=== PATIENT | female | born 1960 | race Caucasian/White ===

== ENCOUNTER 2017-07-05 08:34 | Emergency (ER) | payer OTHER ==
[~2017-07-05] VITALS: Ht 170.2 cm; Wt 86.4 kg
[~2017-07-05 08:34] MED LIST: CLON0.5T PO; ONDA4TAB7 OR; PROM25SU8 PO
[2017-07-05 08:38] VITALS: BP 146/79; PULSE 80; RESP 16; TEMP 97.4; O2SAT 99
[2017-07-05] MEDS ORDERED: ZOFR4TAB PO (08:45)
[2017-07-05] MEDS ORDERED: CLON1 PO (08:45)
[2017-07-05] MEDS ORDERED: DICY10 PO (08:45)
[2017-07-05] MEDS ORDERED: HUMI40KI SQ (08:45)
[2017-07-05] MEDS ORDERED: ESTR1.25 PO (08:45)
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
[2017-07-05 10:23] VITALS: BP 123/73
== END 2017-07-05 10:29 | disposition home or self-care (01) ==
LOC: PHED 08:34
DX: S40.012A Contusion of left shoulder, initial encounter (principal); S16.1XXA Strain of muscle, fascia and tendon at neck level, initial encounter; V89.2XXA Person injured in unspecified motor-vehicle accident, traffic, initial encounter
CPT/HCPCS: 71046; 72040; 73030; 99284

== ENCOUNTER 2017-07-08 07:08 | Emergency (ER) | payer OTHER, MEDICARE ==
[~2017-07-08] VITALS: Ht 170.2 cm; Wt 86.0 kg
[~2017-07-08 07:08] MED LIST changes: -CLON0.5T PO; +CLON1 PO; +DICY10 PO; +ESTR1.25 PO; +HUMI40KI SQ; -ONDA4TAB7 OR; -PROM25SU8 PO; +ZOFR4TAB PO
[2017-07-08 07:13] VITALS: BP 128/60; PULSE 73; RESP 16; TEMP 97.7; O2SAT 98
[2017-07-08] MEDS ORDERED: TRAM50 PO (07:40)
[2017-07-08] MEDS ORDERED: CYCL10TA PO (07:40)
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
== END 2017-07-08 08:34 | disposition home or self-care (01) ==
LOC: PHED 07:08
DX: S76.011A Strain of muscle, fascia and tendon of right hip, initial encounter (principal); K50.90 Crohn's disease, unspecified, without complications; M19.90 Unspecified osteoarthritis, unspecified site; V49.9XXA Car occupant (driver) (passenger) injured in unspecified traffic accident, initial encounter; Z88.5 Allergy status to narcotic agent
CPT/HCPCS: 99284

== ENCOUNTER 2017-11-07 11:30 | Emergency (ER) | payer OTHER ==
[~2017-11-07] VITALS: Ht 170.2 cm; Wt 87.0 kg
[~2017-11-07 11:30] MED LIST changes: +CYCL10TA PO; +TRAM50 PO
[2017-11-07 11:38] VITALS: BP 149/79; PULSE 97; RESP 16; TEMP 98.5; O2SAT 97
[2017-11-07] MEDS ORDERED: SODIUM CHLOR 0.9% 1000 ML INJ 1,000 ML IV SCH (12:12)
[2017-11-07] MEDS ORDERED: MORPHINE SULFATE 4 MG/ML INJ IV PUSH ONE (12:15)
[2017-11-07] MEDS ORDERED: SODIUM CHLORIDE 0.9% FLUSH 10 ML FLUSH IV FLUSH PRN (12:15)
--- NOTE | 2017-11-07 12:18 | PD ---
HPI Chief Complaint: Abdominal Pain Time Seen by Provider: 11:59 Travel History International Travel<30 days: No Contact w/Intl Traveler<30days: No Traveled to known affect area: No History of Present Illness HPI Patient is a 57-year-old female with history of Crohn's disease, who follows with Dr. Marcano in the office, presents the emergency room for evaluation of abdominal pain. Patient reports that she has been taking Humira for her Crohn' s disease, patient does not believe that this is helping her with her symptoms. Patient reports that she has been having lower abdominal pain for the past few days, reports that pain is worse today. Patient reports that pain is associated nausea with no episodes of emesis, reports that she has had multiple episodes of diarrhea. She did try calling her leaf blender for an appointment, reports that the earliest that she could be seen was on November 29, 2017. Patient denies any fevers or chills, reports that pain is similar to her past Crohn's flareup. Patient does endorse that she has never had any abdominal surgeries in the past, she does have history of small bowel obstruction which resolved after medical treatment, no surgery was needed. PFSH Past Medical History Arthritis: Yes Anxiety: Yes Depression: Yes Heart Rhythm Problems: No Cancer: No Cardiac Catheterization: No Cardiovascular Problems: Yes (hx of htn not at this present time) High Cholesterol: No Chest Pain: Yes Congestive Heart Failure: No Cerebrovascular Accident: No Diabetes: No Diminished Hearing: No Gastrointestinal Disorders: Yes (IRRITABLE BOWEL SYNDROME,CROHNS) GERD: Yes Genitourinary: No Headaches: No Hepatitis: No Hiatal Hernia: No Heparin Induced Thrombocytopen: No Hypertension: Yes Medical other: Yes (GERD, ARTHRITIS) Neurologic: No Reproductive: Yes (OVARIAN CYSTS) Respiratory: No Immunizations Current: No Migraines: No Renal Failure: No Seizures: No Thyroid Disease: No PNEUMOCCOCAL Vaccine (Year): 2008 Menopausal: Yes : 2 Para: 2 Tubal Ligation: Yes Past Surgical History Abdominal Surgery: Yes Section: Yes (X2) Cholecystectomy: Yes Coronary Artery Bypass Graft: No Gynecologic Surgery: Yes (C SECTION X2, LASH) Hysterectomy: Yes Joint Replacement: Yes (TOTAL LEFT HIP 1989, REVISION 2011) Pacemaker: No Other Surgery: Yes Social History Alcohol Use: Yes (OCC) Tobacco Use: No (NEVER) Substance Use: No Allergies-Medications (Allergen,Severity, Reaction): Coded Allergies: hydromorphone (Verified Adverse Reaction, Intermediate, N/V, SWEATING, ) codeine (Unverified Adverse Reaction, Mild, Nausea/Vomiting, 11/07/17) metoclopramide (Unverified Adverse Reaction, Mild, Irritability/Anxiety, ) morphine (Unverified Adverse Reaction, Mild, PT DENIES, 11/07/17) Reported Meds & Prescriptions Reported Meds & Active Scripts Active Macrobid (Nitrofurantoin Monohydrate Macrocrystals) 100 Mg Capsule 100 Mg PO BID 10 Days Reported Humira 2-Pack Inj (Adalimumab 2-Pack Inj) 40 Mg/0.8 Ml Syr 40 Mg SQ Q14D Zofran (Ondansetron HCl) 4 Mg Tab 4 Mg PO Q8HR PRN Premarin (Estrogens Conjugated) 1.25 Mg Tab 1.25 Mg PO DAILY Klonopin (Clonazepam) 1 Mg Tab 1 Mg PO HS Review of Systems General / Constitutional: No: Fever, Chills Eyes: No: Visual changes HENT: No: Headaches Cardiovascular: No: Chest Pain or Discomfort Respiratory: No: Shortness of Breath Gastrointestinal: Positive: Nausea, Diarrhea, Abdominal Pain Genitourinary: No: Dysuria Musculoskeletal: No: Pain Skin: No Rash Neurologic: No: Weakness Psychiatric: No: Depression Endocrine: No: Polydipsia Hematologic/Lymphatic: No: Easy Bruising Physical Exam Narrative GENERAL: mild distress SKIN: Focused skin assessment warm/dry. HEAD: Atraumatic. Normocephalic. EYES: Pupils equal and round. No scleral icterus. No injection or drainage. ENT: No nasal bleeding or discharge. Mucous membranes pink and moist. NECK: Trachea midline. No JVD. CARDIOVASCULAR: Regular rate and rhythm. No murmur appreciated. RESPIRATORY: No accessory muscle use. Clear to auscultation. Breath sounds equal bilaterally. GASTROINTESTINAL: Abdomen soft, moderate tenderness to lower abdomen with guarding on exam, nondistended. Hepatic and splenic margins not palpable. + BS MUSCULOSKELETAL: No obvious deformities. No clubbing. No cyanosis. No edema. NEUROLOGICAL: Awake and alert. No obvious cranial nerve deficits. Motor grossly within normal limits. Normal speech. PSYCHIATRIC: Appropriate mood and affect; insight and judgment normal. Data Data Last Documented VS Vital Signs Date Time Temp Pulse Resp B/P (MAP) Pulse Ox O2 Delivery O2 Flow Rate FiO2 11/07/17 12:30 87 20 139/84 (102) 98 11/07/17 11:38 98.5 Orders Orders Complete Blood Count With Diff (11/07/17 12:12) Comprehensive Metabolic Panel (11/07/17 12:12) Lipase (11/07/17 12:12) Prothrombin Time / Inr (Pt) (11/07/17 12:12) Act Partial Throm Time (Ptt) (11/07/17 12:12) Urinalysis - C+S If Indicated (11/07/17 12:12) Ct Abd/Pel W Iv Contrast(Rout) (11/07/17 12:12) Iv Access Insert/Monitor (11/07/17 12:12) Ecg Monitoring (11/07/17 12:12) Oximetry (11/07/17 12:12) Morphine Inj (Morphine Inj) (11/07/17 12:15) Sodium Chlor 0.9% 1000 Ml Inj (Ns 1000 M (11/07/17 12:12) Sodium Chloride 0.9% Flush (Ns Flush) (11/07/17 12:15) Ondansetron Odt (Zofran Odt) (11/07/17 13:15) Iohexol 350 Inj (Omnipaque 350 Inj) (11/07/17 13:39) Urine Culture (11/07/17 14:35) Labs Laboratory Tests Test 11/07/17 12:10 11/07/17 14:35 White Blood Count 9.2 TH/MM3 Red Blood Count 4.62 MIL/MM3 Hemoglobin 14.0 GM/DL Hematocrit 41.3 % Mean Corpuscular Volume 89.6 FL Mean Corpuscular Hemoglobin 30.4 PG Mean Corpuscular Hemoglobin Concent 34.0 % Red Cell Distribution Width 11.9 % Platelet Count 276 TH/MM3 Mean Platelet Volume 8.1 FL Neutrophils (%) (Auto) 73.6 % Lymphocytes (%) (Auto) 15.6 % Monocytes (%) (Auto) 7.5 % Eosinophils (%) (Auto) 1.5 % Basophils (%) (Auto) 1.8 % Neutrophils # (Auto) 6.8 TH/MM3 Lymphocytes # (Auto) 1.4 TH/MM3 Monocytes # (Auto) 0.7 TH/MM3 Eosinophils # (Auto) 0.1 TH/MM3 Basophils # (Auto) 0.2 TH/MM3 CBC Comment DIFF FINAL Differential Comment Prothrombin Time 9.9 SEC Prothromb Time International Ratio 1.0 RATIO Activated Partial Thromboplast Time 27.1 SEC Blood Urea Nitrogen 10 MG/DL Creatinine 0.75 MG/DL Random Glucose 93 MG/DL Total Protein 7.2 GM/DL Albumin 3.0 GM/DL Calcium Level 8.7 MG/DL Alkaline Phosphatase 107 U/L Aspartate Amino Transf (AST/SGOT) 30 U/L Alanine Aminotransferase (ALT/SGPT) 44 U/L Total Bilirubin 0.4 MG/DL Sodium Level 137 MEQ/L Potassium Level 4.1 MEQ/L Chloride Level 105 MEQ/L Carbon Dioxide Level 27.2 MEQ/L Anion Gap 5 MEQ/L Estimat Glomerular Filtration Rate 80 ML/MIN Lipase 79 U/L Urine Collection Type CLEAN CATCH Urine Color YELLOW Urine Turbidity CLEAR Urine pH 5.0 Urine Specific [place] LESS/EQUAL 1.005 Urine Protein NEG mg/dL Urine Glucose (UA) NEG mg/dL Urine Ketones NEG mg/dL Urine Occult Blood NEG Urine Nitrite NEG Urine Bilirubin NEG Urine Urobilinogen 0.2 MG/DL Urine Leukocyte Esterase NEG Urine WBC 0-2 /hpf Urine Squamous Epithelial Cells 6-8 /hpf Urine Bacteria MOD /hpf Microscopic Urinalysis Comment CULTURE INDICATED Urine Collection Time 1430 MDM Medical Decision Making Medical Screen Exam Complete: Yes Emergency Medical Condition: Yes Medical Record Reviewed: Yes Interpretation(s) Vital Signs Date Time Temp Pulse Resp B/P (MAP) Pulse Ox O2 Delivery O2 Flow Rate FiO2 11/07/17 11:38 98.5 97 16 149/79 (102 97 Differential Diagnosis Crohn's exacerbation, colitis, electrolyte abnormality, small bowel obstruction , SMA occlusion Narrative Course Patient is a 57-year-old female who presents the emergency room with complaints of lower abdominal pain which began a few days ago, pain is associated with nausea and diarrhea, reports history of Crohn's disease which she follows with Dr. Marcano. During the course of the patients emergency department visit, the patients history, examination, and differential diagnosis were reviewed with the patient. The patient was placed on a school lunch monitor with oximetry and frequent blood pressure monitoring. The patient had an IV access obtained and blood work sent for analysis. The patient was initially provided IV fluids, Zofran ODT as well as morphine IV , patient denies history of allergy to morphine, she has tolerated this in the past multiple times. Morphine is not an allergy for patient. The patients laboratory studies were reviewed and remarkable for Laboratory Tests Test 11/07/17 12:10 11/07/17 14:35 White Blood Count 9.2 TH/MM3 (4.0-11.0) Red Blood Count 4.62 MIL/MM3 (4.00-5.30) Hemoglobin 14.0 GM/DL (11.6-15.3) Hematocrit 41.3 % (35.0-46.0) Mean Corpuscular Volume 89.6 FL (80.0-100.0) Mean Corpuscular Hemoglobin 30.4 PG (27.0-34.0) Mean Corpuscular Hemoglobin Concent 34.0 % (32.0-36.0) Red Cell Distribution Width 11.9 % (11.6-17.2) Platelet Count 276 TH/MM3 (150-450) Mean Platelet Volume 8.1 FL (7.0-11.0) Neutrophils (%) (Auto) 73.6 % (16.0-70.0) Lymphocytes (%) (Auto) 15.6 % (9.0-44.0) Monocytes (%) (Auto) 7.5 % (0.0-8.0) Eosinophils (%) (Auto) 1.5 % (0.0-4.0) Basophils (%) (Auto) 1.8 % (0.0-2.0) Neutrophils # (Auto) 6.8 TH/MM3 (1.8-7.7) Lymphocytes # (Auto) 1.4 TH/MM3 (1.0-4.8) Monocytes # (Auto) 0.7 TH/MM3 (0-0.9) Eosinophils # (Auto) 0.1 TH/MM3 (0-0.4) Basophils # (Auto) 0.2 TH/MM3 (0-0.2) CBC Comment DIFF FINAL Differential Comment Prothrombin Time 9.9 SEC (9.8-11.6) Prothromb Time International Ratio 1.0 RATIO Activated Partial Thromboplast Time 27.1 SEC (24.3-30.1) Blood Urea Nitrogen 10 MG/DL (7-18) Creatinine 0.75 MG/DL (0.50-1.00) Random Glucose 93 MG/DL (74-106) Total Protein 7.2 GM/DL (6.4-8.2) Albumin 3.0 GM/DL (3.4-5.0) Calcium Level 8.7 MG/DL (8.5-10.1) Alkaline Phosphatase 107 U/L (45-117) Aspartate Amino Transf (AST/SGOT) 30 U/L (15-37) Alanine Aminotransferase (ALT/SGPT) 44 U/L (10-53) Total Bilirubin 0.4 MG/DL (0.2-1.0) Sodium Level 137 MEQ/L (136-145) Potassium Level 4.1 MEQ/L (3.5-5.1) Chloride Level 105 MEQ/L (98-107) Carbon Dioxide Level 27.2 MEQ/L (21.0-32.0) Anion Gap 5 MEQ/L (5-15) Estimat Glomerular Filtration Rate 80 ML/MIN (>89) Lipase 79 U/L (73-393) Urine Collection Type CLEAN CATCH Urine Color YELLOW (YELLW/STRAW) Urine Turbidity CLEAR (CLEAR) Urine pH 5.0 (5.0-8.5) Urine Specific [place] LESS/EQUAL 1.005 Urine Protein NEG mg/dL (NEG-TRACE) Urine Glucose (UA) NEG mg/dL (NEG) Urine Ketones NEG mg/dL (NEG) Urine Occult Blood NEG (NEG) Urine Nitrite NEG (NEG) Urine Bilirubin NEG (NEG) Urine Urobilinogen 0.2 MG/DL (LESS THAN Urine Leukocyte Esterase NEG (NEG) Urine WBC 0-2 /hpf (0-5) Urine Squamous Epithelial Cells 6-8 /hpf (0-5) Urine Bacteria MOD /hpf (NONE) Microscopic Urinalysis Comment CULTURE INDICATED Urine Collection Time 1430 Radiology studies were reviewed and remarkable for Ct of abdomen/pelvis: CONCLUSION: 1. Colonic diverticula in the descending colon and sigmoid colon. There is some thickening of the sigmoid colon likely related to hypertrophy. Significant surrounding inflammatory change is not clearly seen. 2. No bowel dilatation is seen. The small bowel is grossly unremarkable. 3. Status post cholecystectomy. All labs and all studies reviewed, patient feeling much better, patient with no acute process on CT. Patient does have a UTI, will treat for UTI. Patient follow-up with her leaf blender and will return to the emergency room as needed. Signs and symptoms of when to return to the emergency room was reviewed with the patient in detail. Diagnosis Primary Impression: UTI (urinary tract infection) Qualified Codes: N30.00 - Acute cystitis without hematuria Additional Impression: Abdominal pain Qualified Codes: R10.30 - Lower abdominal pain, unspecified Patient Instructions: General Instructions Additional Instructions: Please provide patient with a copy of their lab work and studies at discharge* * Please follow up with your primary care doctor in 2-3 days Return to the ER if symptoms worsen or progress Return to the ER as needed Med/Other Pt SpecificInfo: Prescription(s) given Scripts Ondansetron Odt (Zofran Odt) 4 Mg Tab 4 MG SL Q6HR Y for Nausea/Vomiting, #20 TAB 0 Refills Prov: Yamilex Riggins DO 11/07/17 Nitrofurantoin Monohydrate Macrocrystals (Macrobid) 100 Mg Capsule 100 MG PO BID for Infection for 10 Days, #20 CAP 0 Refills Prov: Yamilex Riggins DO 11/07/17 Disposition: 01 DISCHARGE HOME Condition: Stable Yamilex Riggins DO November 07, 2017 12:18
[2017-11-07 12:26] VITALS: O2SAT 98
[2017-11-07 12:30] VITALS: BP 139/84; PULSE 87; RESP 20; O2SAT 98
[2017-11-07 12:32] LABS: AUTOMATED NEUTROPHIL # 6.8 TH/MM3 (1.8-7.7); BASOPHIL # 0.2 TH/MM3 (0-0.2); BASOPHIL % 1.8 % (0.0-2.0); EOSINOPHIL # 0.1 TH/MM3 (0-0.4); EOSINOPHIL % 1.5 % (0.0-4.0); HEMATOCRIT 41.3 % (35.0-46.0); LYMPH % 15.6 % (9.0-44.0); LYMPHOCYTE # 1.4 TH/MM3 (1.0-4.8); MEAN CELL VOLUME 89.6 FL (80.0-100.0); MEAN CORPUSCULAR HEMOGLOBIN 30.4 PG (27.0-34.0); MEAN PLATELET VOLUME 8.1 FL (7.0-11.0); MONO % 7.5 % (0.0-8.0); MONOCYTE # 0.7 TH/MM3 (0-0.9); NEUT % 73.6 % (16.0-70.0); PLATELET COUNT 276 TH/MM3 (150-450); RED BLOOD COUNT 4.62 MIL/MM3 (4.00-5.30); RED CELL DISTRIBUTION WIDTH 11.9 % (11.6-17.2); WHITE BLOOD COUNT 9.2 TH/MM3 (4.0-11.0)
[2017-11-07 12:41] LABS: CHLORIDE 105 MEQ/L (98-107); SODIUM (NA) 137 MEQ/L (136-145)
[2017-11-07 12:44] LABS: CALCIUM 8.7 MG/DL (8.5-10.1)
[2017-11-07 12:45] LABS: BICARBONATE 27.2 MEQ/L (21.0-32.0); BLOOD UREA NITROGEN 10 MG/DL (7-18); GLUCOSE,RANDOM 93 MG/DL (74-106)
[2017-11-07 12:47] LABS: PROTHROMBIN TIME - PATIENT 9.9 SEC (9.8-11.6)
[2017-11-07 12:48] LABS: ALT (GPT) 44 U/L (10-53); AST (GOT) 30 U/L (15-37); CREATININE 0.75 MG/DL (0.50-1.00); GLOMERULAR FILTRATION RATE 80 ML/MIN (>89)
[2017-11-07 12:49] LABS: TOTAL BILIRUBIN ADULT 0.4 MG/DL (0.2-1.0); TOTAL PROTEIN 7.2 GM/DL (6.4-8.2)
[2017-11-07 12:50] LABS: ALKALINE PHOSPHATASE 107 U/L (45-117)
[2017-11-07] MEDS ORDERED: ONDANSETRON ODT 4 MG TAB PO ONE (13:15)
[2017-11-07] MEDS ORDERED: IOHEXOL 350 MG/ML 10 ML VIAL (for RAD DIAG) IVCONTRAST ONE (13:39)
--- NOTE | 2017-11-07 13:49 | RADRPT ---
EXAM DATE: 11/07/2017 1:38 PM EDT AGE/SEX: 57 years / Female INDICATIONS: Right lower quadrant pain. Diarrhea x 3 days. CLINICAL DATA: This is the patient's initial encounter. Patient reports that signs and symptoms have been present for 3 days and indicates a pain score of 9/10. MEDICAL/SURGICAL HISTORY: Crohn's disease. . Left hip surgery. ORAL CONTRAST: No oral contrast ingested. RADIATION DOSE: 17.82 CTDI (mGy) COMPARISON: No prior [facility] exams available for comparison. TECHNIQUE: Multiple contiguous axial images were obtained through the abdomen and pelvis following b olus infusion of 80 ml Omnipaque 350 (iohexol) nonionic water-soluble contrast as a single exam dos e. No oral contrast ingested. Using automated exposure control and adjustment of the mA and/or kV ac cording to patient size, the radiation dose was kept as low as reasonably achievable to obtain optima l diagnostic quality images. FINDINGS: Lower Lungs: The visualized lower lungs are clear. Liver: The liver has a homogeneous density without space-occupying lesion. There is no dilation of th e biliary tree. The patient is status post cholecystectomy. Spleen: Homogeneous density without enlargement. Pancreas: Unremarkable without mass or calcification. Kidneys: Normal in size and shape. No evidence of mass or hydronephrosis. Adrenal Glands: Unremarkable. Aorta: Atherosclerotic calcifications are seen throughout the arterial system. No aneurysm is seen. Bowel/Mesentery: The bowel loops are grossly unremarkable. The cecum and sigmoid colon have a normal configuration. The appendix appears normal. There are colonic diverticula in the descending colon an d sigmoid region. There is some thickening of the sigmoid colon but surrounding inflammatory change i s not seen. Abdominal Wall: Intact. Retroperitoneum: No evidence of adenopathy in the retrocrural, para-aortic, or deep pelvic regions. Bladder: Contours are smooth. Reproductive Organs: No abnormal masses or calcifications seen. Inguinal: The inguinal region is unremarkable without evidence of adenopathy. Bony Structures: There is degenerative change in the lumbar spine. There is a left hip prosthesis pr esent. CONCLUSION: 1. Colonic diverticula in the descending colon and sigmoid colon. There is some thickening of the si gmoid colon likely related to hypertrophy. Significant surrounding inflammatory change is not clearly seen. 2. No bowel dilatation is seen. The small bowel is grossly unremarkable. 3. Status post cholecystectomy. Electronically signed by: Desean Bedolla MD 11/07/2017 1:47 PM EDT
[2017-11-07 14:47] LABS: BILIRUBIN, URINE NEG (NEG); BLOOD, URINE NEG (NEG); GLUCOSE,URINE NEG (NEG); KETONE, URINE NEG (NEG); NITRITE,URINE NEG (NEG); URINE COLOR YELLOW (YELLW/STRAW); URINE LEUKOCYTE ESTERASE NEG (NEG)
[2017-11-07 14:55] LABS: BACTERIA, URINE MOD /hpf; WBC, URINE 0-2 /hpf (0-5)
[2017-11-07] MEDS ORDERED: MACR100C2 PO (15:17)
[2017-11-07] MEDS ORDERED: ZOFR4TAB3 SL (15:24)
[2017-11-07 15:37] VITALS: BP 131/77
== END 2017-11-07 15:51 | disposition home or self-care (01) ==
LOC: PHED 11:30
DX: N30.00 Acute cystitis without hematuria (principal); R10.30 Lower abdominal pain, unspecified; K50.90 Crohn's disease, unspecified, without complications; K57.30 Diverticulosis of large intestine without perforation or abscess without bleeding; M19.90 Unspecified osteoarthritis, unspecified site; F32.9 Major depressive disorder, single episode, unspecified; Z90.49 Acquired absence of other specified parts of digestive tract
CPT/HCPCS: 74177; 80053; 81001; 83690; 85025; 85610; 85730; 87086; 96361; 96374; 99285; J2270; J7030; Q9967

== ENCOUNTER 2018-06-28 14:52 | Inpatient (IN) ==
[2018-06-28] MEDS ORDERED: Morphine Inj 4 MG/ML Vial IV.PUSH ONE ×2 (15:20→17:13)
[2018-06-28] MEDS ORDERED: Sod Chloride 0.9% Inj 1,000 ML IV.SIG ONE (15:20)
--- NOTE | 2018-06-28 15:31 | ED ---
HPI General Chief Complaint: Abdominal Pain Stated Complaint: chrons flare up Time Seen by Provider: 06/28/18 15:08 Source: patient Mode of arrival: ambulatory Limitations: no limitations History of Present Illness HPI narrative: 58-year-old female with history of Crohn's disease, previous SBO followed by GI Dr. Marcano here with complaint of generalized abdominal pain times 2 days. She reports intermittent sharp pain in the mid abdomen associated with nausea without vomiting. mild Abdominal distention. Reports a small formed bowel movement today. Denies any blood in stool. No fever or chills. Denies any chest pain or shortness of breath. Reports this feels similar to prior Crohn's flares. She was previously on Humira but discontinued medication approximately a year ago because it was "not helping her symptoms". Severity is moderate/sever. No aggravating or alleviating factors. Related Data Home Medications Medication Instructions Recorded Confirmed adalimumab [Humira] 02/03/18 clonazepam [Klonopin] 1 mg PO HS 02/03/18 06/28/18 conjugated estrogens [Premarin] 1.25 mg PO DAILY 02/03/18 06/28/18 ondansetron HCl [Zofran] 4 mg PO TID-QID PRN 02/03/18 06/28/18 tizanidine [Zanaflex] 4 mg PO TID PRN 02/03/18 06/28/18 Allergies Allergy/AdvReac Type Severity Reaction Status Date / Time hydromorphone AdvReac Intermediate N/V, Verified 06/28/18 14:59 SWEATING codeine AdvReac Mild Nausea/Vomi Verified 06/28/18 14:59 ting metoclopramide AdvReac Mild Irritabilit Verified 06/28/18 14:59 y/Anxiety morphine AdvReac Mild PT DENIES Verified 06/28/18 14:59 Review of Systems ROS: all other systems reviewed are negative PMFSH History History Provided By: Patient Medical History Medical History Carpal tunnel syndrome (Acute) Crohn disease (Acute) Hx of hysterectomy (Acute) Social History Social History Substance History: No History of Abuse Second Hand Smoke Exposure: No Smoking Status: Never smoker How Often Do You Have a Drink Containing Alcohol: 2 to 4 times a month Recent Travel in [facility] within the Last 8 Weeks: No Recent Out of Country Travel within the Last 8 Weeks: No Exam Narrative Exam Narrative: GENERAL: Well-nourished, well-developed patient. Mild distress SKIN: Focused skin assessment warm/dry. HEAD: Normocephalic. EYES: No injection or drainage. NECK: Supple, trachea midline. No JVD CARDIOVASCULAR: Regular rate and rhythm. No murmur appreciated RESPIRATORY: Breath sounds equal bilaterally. No accessory muscle use. GASTROINTESTINAL: + Generalized tenderness to the mid abdomen, abdomen soft, mildly distended. Hypoactive bowel sounds MUSCULOSKELETAL: No cyanosis, or edema. BACK: Nontender without obvious deformity. No CVA tenderness. Course Initial Documented Vital Signs Temperature 98.5 F 06/28/18 14:59 Pulse Rate 76 06/28/18 14:59 Respiratory Rate 16 06/28/18 14:59 Pulse Oximetry 100 06/28/18 14:59 Last Documented Vital Signs Temperature 98.5 F 06/28/18 14:59 Pulse Rate 72 06/28/18 19:21 Respiratory Rate 18 06/28/18 19:21 Blood Pressure 153/76 H 06/28/18 19:21 Pulse Oximetry 97 06/28/18 19:21 Medical Decision Making MDM Narrative Medical decision making narrative: 58-year-old female with history of Crohn's previous SBO here with ABD pain x 2 days. Nausea & vomiting. She is in mild distress. Unable to tolerate p.o. fluids. IV access established, CBC, CMP, lipase, UA, CT abdomen pelvis ordered and pending She was administered 4 mg IV morphine, 4 mg IV Zofran, 1 L of fluid. She denies allergy to morphine reports she is taken this multiple times prior flares. CT concerning for partial small bowel obstruction versus localized ileus. Patient has continued pain despite 4 mg of IV morphine and continue nausea after IV Zofran. Difficulty tolerating p.o. fluids due to the continued nausea. She was administered another dose of 4 mg IV morphine. She has continued but slightly improved pain. Remains nauseous. She will need to be admitted Spoke with hospitalist Dr. Aguayo who agrees to admit patient. Discussed option of NG tube, patient adamantly refused Medical Screen Exam Complete: Yes Emergency Medical Condition: Yes Differential Diagnosis Differential Diagnosis: Crohn's flare, pancreatitis, biliary colic, other Lab Data Result diagrams: 06/28/18 16:20 06/28/18 16:20 Lab Results 06/28/18 06/28/18 06/28/18 Range/Units 16:20 16:20 16:20 CBC w Diff Auto diff final WBC 12.5 H (4.0-11.0) th/mm3 RBC 5.07 (4.00-5.30) mil/mm3 Hgb 15.1 (11.6-15.3) gm/dL Hct 45.7 (35.0-46.0) % MCV 90.1 (80.0-100.0) fL MCH 29.7 (27.0-34.0) pg MCHC 33.0 (32.0-36.0) % RDW 12.0 (11.6-17.2) % Plt Count 322 (150-450) th/mm3 MPV 8.6 (7.0-11.0) fL Neut % (Auto) 74.0 H (16.0-70.0) % Lymph % (Auto) 17.1 (9.0-44.0) % [place] % (Auto) 6.2 (0.0-8.0) % Eos % (Auto) 1.5 (0.0-4.0) % Baso % (Auto) 1.2 (0.0-2.0) % Neut # (Auto) 9.3 H (1.8-7.7) th/mm3 Lymph # (Auto) 2.1 (1.0-4.8) th/mm3 [place] # (Auto) 0.8 (0.0-0.9) th/mm3 Eos # (Auto) 0.2 (0.0-0.4) th/mm3 Baso # (Auto) 0.1 (0.0-0.2) th/mm3 WBC Differential . Differential Comment . PT 9.8 (9.8-11.6) sec INR 1.0 Ratio APTT 28.7 (23.4-31.7) sec Sodium 138 (136-145) meq/L Potassium 4.0 (3.5-5.1) meq/L Chloride 102 (98-107) meq/L Carbon Dioxide 28.6 (21.0-32.0) meq/L Anion Gap 7 (5-15) meq/L BUN 14 (7-18) mg/dL Creatinine 0.72 (0.50-1.00) mg/dL Estimated GFR 83 L (>89) mL/min Random Glucose 97 (74-106) mg/dL Calcium 9.7 (8.5-10.1) mg/dL Magnesium 2.0 (1.5-2.5) mg/dL Total Bilirubin 0.4 (0.2-1.0) mg/dL AST 18 (15-37) U/L ALT 29 (10-53) U/L Alkaline Phosphatase 106 (45-117) U/L Total Protein 7.5 (6.4-8.2) g/dL Albumin 3.1 L (3.4-5.0) g/dL Lipase 93 (73-393) U/L Urine Color (Yellw/Straw) Urine Clarity (Clear) Urine pH (5.0-8.5) Ur Specific [place] (1.002-1.035) Urine Protein (Neg-Trace) mg/dL Urine Glucose (UA) (Negative) mg/dL Urine Ketones (Negative) mg/dL Urine Occult Blood (Negative) Urine Nitrate (Negative) Urine Bilirubin (Negative) Urine Urobilinogen (Less than 2) mg/dL Ur Leukocyte Esterase (Negative) Ur Squamous Epith Cells (0-5) /hpf Urine Bacteria (None) /hpf Micro UA Comment Ur Microscopic Review Urine Culture Comments 06/28/18 Range/Units 17:05 CBC w Diff WBC (4.0-11.0) th/mm3 RBC (4.00-5.30) mil/mm3 Hgb (11.6-15.3) gm/dL Hct (35.0-46.0) % MCV (80.0-100.0) fL MCH (27.0-34.0) pg MCHC (32.0-36.0) % RDW (11.6-17.2) % Plt Count (150-450) th/mm3 MPV (7.0-11.0) fL Neut % (Auto) (16.0-70.0) % Lymph % (Auto) (9.0-44.0) % [place] % (Auto) (0.0-8.0) % Eos % (Auto) (0.0-4.0) % Baso % (Auto) (0.0-2.0) % Neut # (Auto) (1.8-7.7) th/mm3 Lymph # (Auto) (1.0-4.8) th/mm3 [place] # (Auto) (0.0-0.9) th/mm3 Eos # (Auto) (0.0-0.4) th/mm3 Baso # (Auto) (0.0-0.2) th/mm3 WBC Differential Differential Comment PT (9.8-11.6) sec INR Ratio APTT (23.4-31.7) sec Sodium (136-145) meq/L Potassium (3.5-5.1) meq/L Chloride (98-107) meq/L Carbon Dioxide (21.0-32.0) meq/L Anion Gap (5-15) meq/L BUN (7-18) mg/dL Creatinine (0.50-1.00) mg/dL Estimated GFR (>89) mL/min Random Glucose (74-106) mg/dL Calcium (8.5-10.1) mg/dL Magnesium (1.5-2.5) mg/dL Total Bilirubin (0.2-1.0) mg/dL AST (15-37) U/L ALT (10-53) U/L Alkaline Phosphatase (45-117) U/L Total Protein (6.4-8.2) g/dL Albumin (3.4-5.0) g/dL Lipase (73-393) U/L Urine Color Yellow (Yellw/Straw) Urine Clarity Clear (Clear) Urine pH 6.0 (5.0-8.5) Ur Specific [place] 1.010 (1.002-1.035) Urine Protein Negative (Neg-Trace) mg/dL Urine Glucose (UA) Negative (Negative) mg/dL Urine Ketones Negative (Negative) mg/dL Urine Occult Blood Negative (Negative) Urine Nitrate Negative (Negative) Urine Bilirubin Negative (Negative) Urine Urobilinogen 0.2 (Less than 2) mg/dL Ur Leukocyte Esterase Negative (Negative) Ur Squamous Epith Cells 0-5 (0-5) /hpf Urine Bacteria Rare H (None) /hpf Micro UA Comment Culture not ind Ur Microscopic Review Microscopic reviewed Urine Culture Comments Culture not ind Imaging Data Radiologist's impression: Abdomen/Pelvis CT 06/28/18 15:20 CONCLUSION: Abnormal fecalization of small bowel loops are dilated and organized in mid lower abdomen not present on the prior exam with questionable transition to normal distal ileal loops which concerning for partial small bowel obstruction versus localized ileus in the appropriate clinical setting. There is however gas and stool throughout the colon down to the rectum. Discharge Plan Discharge Disposition Patient Disposition: ED Admit(ED Internal Use Only) Discharge Order Discharge Orders: ED Use Only Admit Order (Routine); Ordered 06/28/18 Ordered By: Yanni Peralta Discharge Details Diagnosis: SBO (small bowel obstruction) Physicians Team ED Provider: Nate Atkins ED Midlevel Provider: Yanni Peralta Primary Care Provider: NON STAFF,PROVIDER Attending Provider: Mora Woodard Status ED Status: Admitted Observation Patient
[2018-06-28 16:28] LABS: Baso # (Auto) 0.1 th/mm3 (0.0-0.2); Baso % (Auto) 1.2 % (0.0-2.0); Eos # (Auto) 0.2 th/mm3 (0.0-0.4); Eos % (Auto) 1.5 % (0.0-4.0); Hematocrit 45.7 % (35.0-46.0); Hemoglobin 15.1 gm/dL (11.6-15.3); Lymph # (Auto) 2.1 th/mm3 (1.0-4.8); Lymph % (Auto) 17.1 % (9.0-44.0); Mean Corpuscular Hemoglobin 29.7 pg (27.0-34.0); Mean Corpuscular Volume 90.1 fL (80.0-100.0); Mean Platelet Volume 8.6 fL (7.0-11.0); Mono # (Auto) 0.8 th/mm3 (0.0-0.9); Mono % (Auto) 6.2 % (0.0-8.0); Neut # (Auto) 9.3 th/mm3 (1.8-7.7); Platelet Count 322 th/mm3 (150-450); Red Blood Count 5.07 mil/mm3 (4.00-5.30); White Blood Count 12.5 th/mm3 (4.0-11.0)
[2018-06-28 16:35] LABS: Chloride 102 meq/L (98-107); Sodium 138 meq/L (136-145)
[2018-06-28 16:39] LABS: Albumin 3.1 g/dL (3.4-5.0); Anion Gap 7 meq/L (5-15); Blood Urea Nitrogen 14 mg/dL (7-18); Calcium 9.7 mg/dL (8.5-10.1); Carbon Dioxide 28.6 meq/L (21.0-32.0); Glucose,Random 97 mg/dL (74-106); Lipase 93 U/L (73-393)
[2018-06-28 16:41] LABS: Activated Partial Thrombo Time 28.7 sec (23.4-31.7); Prothrombin Time 9.8 sec (9.8-11.6)
[2018-06-28 16:42] LABS: Alanine Aminotransferase 29 U/L (10-53); Aspartate Aminotransferase 18 U/L (15-37); Glomerular Filtration Rate 83 mL/min (>89)
[2018-06-28 16:44] LABS: Total Protein 7.5 g/dL (6.4-8.2)
[2018-06-28 16:45] LABS: Alkaline Phosphatase 106 U/L (45-117)
--- NOTE | 2018-06-28 16:56 | CT ---
EXAM DATE: 06/28/2018 4:44 PM EST AGE/SEX: 58 years / Female INDICATIONS: Upper abdominal pain and cramping x 2 days. CLINICAL DATA: This is the patient's initial encounter. Patient reports that signs and symptoms have been present for 2 days and indicates a pain score of 9/10. MEDICAL/SURGICAL HISTORY: Crohn's disease. Cardiovascular disease. Cholecystectomy. Tubal lig ation. ORAL CONTRAST: No oral contrast ingested. RADIATION DOSE: 17.37 CTDI (mGy) COMPARISON: [facility], CT ABDOMEN & PELVIS W CONTRAST, 11/07/2017. . TECHNIQUE: Multiple contiguous axial images were obtained through the abdomen and pelvis following b olus infusion of 85 ml Omnipaque 350 (iohexol) nonionic water-soluble contrast as a single exam dos e. No oral contrast ingested. Using automated exposure control and adjustment of the mA and/or kV ac cording to patient size, radiation dose was kept as low as reasonably achievable to obtain optimal di agnostic quality images. DICOM format image data is available electronically for review and comparis on. FINDINGS: Abdomen CT: The liver, spleen, pancreas, kidneys, adrenals are unremarkable. There is no evidence for any appreci able pathological adenopathy, free fluid. There are dilated loops of small bowel somewhat organized i n mid and lower abdomen maximum diameter of 3.1 cm and these loops demonstrate fecalization not prese nt on the prior study. A clear transition zone is not identified, however terminal ileum is decompres sed and there is slight fluid in the right pelvic wall adjacent to decompressed loops of terminal ile um with one area could potentially be transition from dilated loops to normal loop of terminal ileum at this site marked and labeled on the images. There is evidence for prior cholecystectomy. Pelvic CT: There is no evidence for mass, abscess formation, or any significant adenopathy within the pelvis. T he appendix appears intact for technique without signs of appendicitis. There are numerous diverticuli within the colon mainly the sigmoid colon without signs of diverticuli tis for technique. CONCLUSION: Abnormal fecalization of small bowel loops are dilated and organized in mid lower abdomen not present on the prior exam with questionable transition to normal distal ileal loops which concer francis for partial small bowel obstruction versus localized ileus in the appropriate clinical setting. There is however gas and stool throughout the colon down to the rectum. Electronically signed by: Marilyn Duque MD Board Certified Radiologist 06/28/2018 4:55 PM EST
[2018-06-28 17:12] LABS: Bilirubin,Urine Negative (Negative); Clarity,Urine Clear (Clear); Color,Urine Yellow (Yellw/Straw); Glucose,Urine (UA) Negative (Negative); Leukocyte Esterase,Urine Negative (Negative); Nitrite,Urine Negative (Negative); Urobilinogen,Urine 0.2 mg/dL (Less than 2)
[2018-06-28 17:23] LABS: Bacteria,Urine Rare /hpf; Squamous Epithelial Cell,Urine 0-5 /hpf (0-5)
[2018-06-28] MEDS ORDERED: Acetaminophen 650 MG Supp RECTAL PRN (19:12)
[2018-06-28] MEDS ORDERED: Morphine Sulfate Inj 2 MG/ML Vial IV.PUSH PRN (19:12)
[2018-06-28] MEDS ORDERED: Enoxaparin Inj 30 MG/0.3 ML Syringe SQ SCH (19:15)
[2018-06-28] MEDS: Ketorolac Inj 30 MG/ML (IVP) Vial IV.PUSH PRN (19:39)
[2018-06-28] MEDS ORDERED: Pantoprazole Inj 40 MG Vial IV.PUSH SCH (20:00)
--- NOTE | 2018-06-28 21:50 | P.HP ---
History of Present Illness Service: internal medicine Primary Care Physician: PROVIDER NON STAFF History of Present Illness: 58 y/o female with hx of Chrons disease presents to the ER with complaints of abdominal pain intensifying over the last day. She states her Chrons disease has not been controlled as she has chronic diarrhea and stopped her Humira over 6 months ago due to lack of effectiveness. She states however that it has been fairly stable with chronic diarrhrea but no real flares with abdominal pain. Aprox 2 days ago she ate nuts which she blames as the culprits for her recent problem. She was experiencing abdominal discomfort but today developed intense abdominal pain across her upper abdomen that she states came in waves. She states she took 2 bentyl w/o relief. She had nausea but no emesis. She had 2 small stools today, formed, but no diarrhea. No bloody stools. Yesterday she felt very gassy. She has had only a banana to eat today and small amount of water. She is urinating well. No fever or chills. She states her symptoms are similar to when she was admitted to possible bowel obstruction many years ago. 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 She has been residing in [place] and that is where her current pcp is located. She is relocating to this area according to what she tells me. Up until today she feels she has been doing fairly well aside from the regular diarrhea. - Diagnosis (1) SBO (small bowel obstruction) (2) Crohns disease (3) Fibromyalgia Review of Systems All other systems reviewed negative except as stated in HPI PMFSH - History History Provided By: Patient, Medical Record - Medical History Medical History: Medical History (Last Reviewed 06/28/18 @ 21:39 by Mora Woodard MD) Carpal tunnel syndrome Crohn disease Hx of hysterectomy - Surgical History Surgical History: Surgical History (Last Reviewed 06/28/18 @ 21:38 by Mora Woodard MD) Hx of cardiac catheterization Hx of cholecystectomy Hx of dilation and curettage Hx of joint replacement Hx of tubal ligation - Family History Family History: Family History (Last Updated 06/28/18 @ 21:41 by Mora Woodard MD) Other Family history of colon cancer - Social History I have reviewed the patient's Social History: Yes - Tobacco History Second Hand Smoke Exposure: No Tobacco Use In Past 30 Days: No Smoking Status: Never smoker - Alcohol History How Often Do You Have a Drink Containing Alcohol: 2 to 3 times a week - Substance Use History Substance History: No History of Abuse - Travel History Recent Travel in the [place] Within the Last 8 Weeks: No Recent Travel Out of the Country Within the Last 8 Weeks: No - Immunization History Tetanus Immunization: <5 Years Hx Influenza Vaccine This Season: Yes Medications and Allergies Active Medications: Active Medications Acetaminophen (Tylenol Supp) 650 mg RECTAL Q4H PRN PRN Reason: FEVER > 100.4 F Clonazepam (Klonopin) 1 mg PO HS SARAH Enoxaparin Sodium (Lovenox Inj) 30 mg SQ Q24H SARAH Sodium Chloride (Ns Inj) 1,000 mls @ 125 mls/hr IV.CONT .Q8H SARAH Ketorolac Tromethamine (Toradol Inj) 30 mg IV.PUSH Q6H PRN PRN Reason: PAIN SCALE 1 TO 5 Stop: 07/03/18 19:16 Last Admin: 06/28/18 19:39 Dose: 30 mg Morphine Sulfate (Morphine Inj) 2 mg IV.PUSH Q4H PRN PRN Reason: PAIN SCALE 6 TO 10 Ondansetron HCl (Zofran Inj) 4 mg IV.PUSH Q6H PRN PRN Reason: NAUSEA OR VOMITING Last Admin: 06/28/18 19:30 Dose: 4 mg Pantoprazole Sodium (Protonix Inj) 40 mg IV.PUSH Q24HR SARAH Promethazine HCl (Phenergan Inj) 12.5 mg IM Q6H PRN PRN Reason: NAUSEA OR VOMITING Last Admin: 06/28/18 20:01 Dose: 12.5 mg Sodium Chloride (Ns Flush) 2 ml IV.FLUSH PRN PRN PRN Reason: FLUSH AFTER USING IV ACCESS Tizanidine HCl (Zanaflex) 4 mg PO TID PRN PRN Reason: Muscle Pain Allergies Allergy/AdvReac Type Severity Reaction Status Date / Time hydromorphone AdvReac Intermediate N/V, Verified 06/28/18 14:59 SWEATING codeine AdvReac Mild Nausea/Vomi Verified 06/28/18 14:59 ting metoclopramide AdvReac Mild Irritabilit Verified 06/28/18 14:59 y/Anxiety morphine AdvReac Mild PT DENIES Verified 06/28/18 14:59 Home Medications Medication Instructions Recorded Confirmed Type adalimumab [Humira] 02/03/18 History clonazepam [Klonopin] 1 mg PO HS 02/03/18 06/28/18 History conjugated estrogens [Premarin] 1.25 mg PO DAILY 02/03/18 06/28/18 History ondansetron HCl [Zofran] 4 mg PO TID-QID PRN 02/03/18 06/28/18 History tizanidine [Zanaflex] 4 mg PO TID PRN 02/03/18 06/28/18 History Exam Vital signs: Vital Signs 06/28/18 14:59 06/28/18 16:11 06/28/18 17:22 Temperature 98.5 F Pulse Rate 76 73 Respiratory Rate 16 15 16 Blood Pressure 155/70 H Pulse Oximetry 100 97 06/28/18 17:30 06/28/18 19:21 06/28/18 20:00 Temperature 96.2 F L Pulse Rate 72 77 Respiratory Rate 15 18 18 Blood Pressure 153/76 H 158/70 H Pulse Oximetry 97 96 Intake & Output 06/28/18 06/28/18 06/29/18 06:59 18:59 06:59 Intake Total 1000 / 1000 Balance 1000 / 1000 Weight 88 kg 85.7 kg Intake: IV 1000 / 1000 NS Inj 1,000 ML @ Wide Open IV. 1000 / 1000 SIG BOLUS ONE Rx#:[id number] Other: Weight On Admission 85.7 kg - Constitutional mild distress - Routine HEENT Exam Head: Present: normocephalic, atraumatic Eye: Present: EOMI ENT: Present: mucous membranes dry - Routine Neck Exam Present: full ROM - Routine Respiratory Exam Present: CTA bilaterally - Routine Cardiovascular Exam Present: RRR - Routine Abdominal Exam Present: normoactive bowel sounds, tenderness Comments: slight distention.midepigastic tenderness no rebound - Routine Extremities Exam Present: full ROM - Routine Skin Exam Present: intact, warm - Routine Neurological Exam Present: alert, oriented X3 Results - Labs CBC & Chem 7: 06/28/18 16:20 06/28/18 16:20 Labs: Laboratory Results - last 24 hr 06/28/18 06/28/18 06/28/18 16:20 16:20 16:20 CBC w Diff Auto diff final WBC 12.5 H RBC 5.07 Hgb 15.1 Hct 45.7 MCV 90.1 MCH 29.7 MCHC 33.0 RDW 12.0 Plt Count 322 MPV 8.6 Neut % (Auto) 74.0 H Lymph % (Auto) 17.1 [place] % (Auto) 6.2 Eos % (Auto) 1.5 Baso % (Auto) 1.2 Neut # (Auto) 9.3 H Lymph # (Auto) 2.1 [place] # (Auto) 0.8 Eos # (Auto) 0.2 Baso # (Auto) 0.1 WBC Differential . Differential Comment . PT 9.8 INR 1.0 APTT 28.7 Sodium 138 Potassium 4.0 Chloride 102 Carbon Dioxide 28.6 Anion Gap 7 BUN 14 Creatinine 0.72 Estimated GFR 83 L Random Glucose 97 Calcium 9.7 Magnesium 2.0 Total Bilirubin 0.4 AST 18 ALT 29 Alkaline Phosphatase 106 Total Protein 7.5 Albumin 3.1 L Lipase 93 Urine Color Urine Clarity Urine pH Ur Specific [place] Urine Protein Urine Glucose (UA) Urine Ketones Urine Occult Blood Urine Nitrate Urine Bilirubin Urine Urobilinogen Ur Leukocyte Esterase Ur Squamous Epith Cells Urine Bacteria Micro UA Comment Ur Microscopic Review Urine Culture Comments 06/28/18 17:05 CBC w Diff WBC RBC Hgb Hct MCV MCH MCHC RDW Plt Count MPV Neut % (Auto) Lymph % (Auto) [place] % (Auto) Eos % (Auto) Baso % (Auto) Neut # (Auto) Lymph # (Auto) [place] # (Auto) Eos # (Auto) Baso # (Auto) WBC Differential Differential Comment PT INR APTT Sodium Potassium Chloride Carbon Dioxide Anion Gap BUN Creatinine Estimated GFR Random Glucose Calcium Magnesium Total Bilirubin AST ALT Alkaline Phosphatase Total Protein Albumin Lipase Urine Color Yellow Urine Clarity Clear Urine pH 6.0 Ur Specific [place] 1.010 Urine Protein Negative Urine Glucose (UA) Negative Urine Ketones Negative Urine Occult Blood Negative Urine Nitrate Negative Urine Bilirubin Negative Urine Urobilinogen 0.2 Ur Leukocyte Esterase Negative Ur Squamous Epith Cells 0-5 Urine Bacteria Rare H Micro UA Comment Culture not ind Ur Microscopic Review Microscopic reviewed Urine Culture Comments Culture not ind - Imaging Impressions Abdomen/Pelvis CT 06/28/18 15:20 CONCLUSION: Abnormal fecalization of small bowel loops are dilated and organized in mid lower abdomen not present on the prior exam with questionable transition to normal distal ileal loops which concerning for partial small bowel obstruction versus localized ileus in the appropriate clinical setting. There is however gas and stool throughout the colon down to the rectum. Caprini VTE Risk Assessment Caprini VTE Risk Assessment: Moderate/High Risk (score >= 2) Caprini Risk Assessment Model: Point Value = 1 Point Value = 2 Point Value = 3 Point Value = 5 Age 41-60 Minor surgery BMI > 25 kg/m2 Swollen legs Varicose veins or History of unexplained or recurrent spontaneous Oral contraceptives or hormone replacement Sepsis (< 1 month) Serious lung disease, including pneumonia (< 1 month) Abnormal pulmonary function Acute myocardial infarction Congestive heart failure (< 1 month) History of inflammatory bowel disease Medical patient at bed rest Age 61-74 Arthroscopic surgery Major open surgery (> 45 min) Laparoscopic surgery (> 45 min) Malignancy Confined to bed (> 72 hours) Immobilizing plaster cast Central venous access Age >= 75 History of VTE Family history of VTE Factor V Leiden Prothrombin [id number] Lupus anticoagulant Anticardiolipin antibodies Elevated serum homocysteine Heparin-induced thrombocytopenia Other congenital or acquired thrombophilia Stroke (< 1 month) Elective arthroplasty Hip, pelvis, or leg fracture Acute spinal cord injury (< 1 month) Prophylaxis Regimen: Total Risk Factor Score Risk Level Prophylaxis Regimen 0-1 Low Early ambulation 2 Moderate Order ONE of the following: *Sequential Compression Device (SCD) *Heparin 5000 units SQ BID 3-4 Higher Order ONE of the following medications: *Heparin 5000 units SQ TID *Enoxaparin/Lovenox 40 mg SQ daily (WT < 150 kg, CrCl > 30 mL/min) *Enoxaparin/Lovenox 30 mg SQ daily (WT < 150 kg, CrCl > 10-29 mL/min) *Enoxaparin/Lovenox 30 mg SQ BID (WT < 150 kg, CrCl > 30 mL/min) AND/OR *Sequential Compression Device (SCD) 5 or more Highest Order ONE of the following medications: *Heparin 5000 units SQ TID (Preferred with Epidurals) *Enoxaparin/Lovenox 40 mg SQ daily (WT < 150 kg, CrCl > 30 mL/min) *Enoxaparin/Lovenox 30 mg SQ daily (WT < 150 kg, CrCl > 10-29 mL/min) *Enoxaparin/Lovenox 30 mg SQ BID (WT < 150 kg, CrCl > 30 mL/min) AND *Sequential Compression Device (SCD) Assessment and Plan - Assessment (1) SBO (small bowel obstruction) Code(s): K56.609 - Unspecified intestinal obstruction, unspecified as to partial versus complete obstruction Status: Acute Plan: possible sbo vs obstruction, she declines ng tube, hydrate overnight has hx of sbo also has hx of abnormal ct secondary to chrons similar to this (2) Crohns disease Code(s): K50.90 - Crohn's disease, unspecified, without complications Status: Chronic Plan: PEr report her Chrons disease did not respond to the Humira and she was unable to pay for other medication alternatives, She has had the diarrhea but no flare ups with abdominal pain over the last couple of months. She has not seen her GI doctor in almost a year. Will place consult (3) Fibromyalgia Code(s): M79.7 - Fibromyalgia Status: Chronic Plan: continue her home medications (2) Crohns disease Qualifiers: Digestive disease complication type: with intestinal obstruction
[2018-06-28] MEDS: Enoxaparin Inj 30 MG/0.3 ML Syringe SQ SCH (21:58)
[2018-06-28] MEDS: Sod Chloride 0.9% Inj 1,000 ML IV.CONT SCH (21:58)
[2018-06-28] MEDS: clonazePAM 1 MG Tablet PO SCH (21:59)
[2018-06-29] MEDS: Sod Chloride 0.9% Inj 1,000 ML IV.CONT SCH ×4 (04:39→17:56)
[2018-06-29] MEDS: Ketorolac Inj 30 MG/ML (IVP) Vial IV.PUSH PRN ×2 (04:40→21:19)
[2018-06-29 07:53] LABS: Calcium 8.4 mg/dL (8.5-10.1)
--- NOTE | 2018-06-29 14:27 | P.PN ---
Subjective Interval history: Feeling much better today, ambulating in room. voiding, no bowel movements or passing gas. Physical Exam Vital signs: Vital Signs 06/28/18 14:59 06/28/18 16:11 06/28/18 17:22 Temperature 98.5 F Pulse Rate 76 73 Respiratory Rate 16 15 16 Blood Pressure 155/70 H Pulse Oximetry 100 97 06/28/18 17:30 06/28/18 19:21 06/28/18 20:00 Temperature 96.2 F L Pulse Rate 72 77 Respiratory Rate 15 18 18 Blood Pressure 153/76 H 158/70 H Pulse Oximetry 97 96 06/29/18 00:00 06/29/18 08:00 06/29/18 12:00 Temperature 97.4 F L 98.2 F 98.4 F Pulse Rate 68 69 66 Respiratory Rate 18 16 16 Blood Pressure 132/74 123/58 L 112/56 L Pulse Oximetry 98 97 96 Intake & Output 06/28/18 06/29/18 06/29/18 18:59 06:59 18:59 Intake Total 1000 / 1000 1000 / 1000 830 / 830 Balance 1000 / 1000 1000 / 1000 830 / 830 Weight 88 kg 85.7 kg Intake: IV 1000 / 1000 1000 / 1000 830 / 830 NS Inj 1,000 ML @ 125 mls/hr IV 1000 / 1000 830 / 830 .CONT .Q8H SARAH Rx#:[id number] NS Inj 1,000 ML @ Wide Open IV. 1000 / 1000 SIG BOLUS ONE Rx#:[id number] Other: # Voids 3 Date of Last Bowel Movement 06/28/18 Weight On Admission 85.7 kg - Constitutional no acute distress - Routine HEENT Exam Head: Present: normocephalic Eye: Present: EOMI ENT: Present: mucous membranes moist - Routine Neck Exam Present: supple - Routine Respiratory Exam Present: CTA bilaterally - Routine Cardiovascular Exam Present: RRR - Routine Abdominal Exam Present: soft, normoactive bowel sounds - Routine Skin Exam Present: intact, warm - Routine Neurological Exam Present: alert, oriented X3 - Routine Psychiatric Exam Present: normal affect, normal thought process Results - Labs CBC & Chem 7: 06/28/18 16:20 06/29/18 06:55 Laboratory Results - last 24 hr 06/28/18 06/28/18 06/28/18 16:20 16:20 16:20 CBC w Diff Auto diff final WBC 12.5 H RBC 5.07 Hgb 15.1 Hct 45.7 MCV 90.1 MCH 29.7 MCHC 33.0 RDW 12.0 Plt Count 322 MPV 8.6 Neut % (Auto) 74.0 H Lymph % (Auto) 17.1 [place] % (Auto) 6.2 Eos % (Auto) 1.5 Baso % (Auto) 1.2 Neut # (Auto) 9.3 H Lymph # (Auto) 2.1 [place] # (Auto) 0.8 Eos # (Auto) 0.2 Baso # (Auto) 0.1 WBC Differential . Differential Comment . PT 9.8 INR 1.0 APTT 28.7 Sodium 138 Potassium 4.0 Chloride 102 Carbon Dioxide 28.6 Anion Gap 7 BUN 14 Creatinine 0.72 Estimated GFR 83 L Random Glucose 97 Calcium 9.7 Magnesium 2.0 Total Bilirubin 0.4 AST 18 ALT 29 Alkaline Phosphatase 106 Total Protein 7.5 Albumin 3.1 L Lipase 93 Urine Color Urine Clarity Urine pH Ur Specific [place] Urine Protein Urine Glucose (UA) Urine Ketones Urine Occult Blood Urine Nitrate Urine Bilirubin Urine Urobilinogen Ur Leukocyte Esterase Ur Squamous Epith Cells Urine Bacteria Micro UA Comment Ur Microscopic Review Urine Culture Comments 06/28/18 06/29/18 17:05 06:55 CBC w Diff WBC RBC Hgb Hct MCV MCH MCHC RDW Plt Count MPV Neut % (Auto) Lymph % (Auto) [place] % (Auto) Eos % (Auto) Baso % (Auto) Neut # (Auto) Lymph # (Auto) [place] # (Auto) Eos # (Auto) Baso # (Auto) WBC Differential Differential Comment PT INR APTT Sodium 140 Potassium 4.0 Chloride 106 Carbon Dioxide 30.0 Anion Gap 4 L BUN 11 Creatinine 0.70 Estimated GFR 86 L Random Glucose 87 Calcium 8.4 L D Magnesium Total Bilirubin AST ALT Alkaline Phosphatase Total Protein Albumin Lipase Urine Color Yellow Urine Clarity Clear Urine pH 6.0 Ur Specific [place] 1.010 Urine Protein Negative Urine Glucose (UA) Negative Urine Ketones Negative Urine Occult Blood Negative Urine Nitrate Negative Urine Bilirubin Negative Urine Urobilinogen 0.2 Ur Leukocyte Esterase Negative Ur Squamous Epith Cells 0-5 Urine Bacteria Rare H Micro UA Comment Culture not ind Ur Microscopic Review Microscopic reviewed Urine Culture Comments Culture not ind - Imaging Impressions Abdomen/Pelvis CT 06/28/18 15:20 CONCLUSION: Abnormal fecalization of small bowel loops are dilated and organized in mid lower abdomen not present on the prior exam with questionable transition to normal distal ileal loops which concerning for partial small bowel obstruction versus localized ileus in the appropriate clinical setting. There is however gas and stool throughout the colon down to the rectum. Assessment and Plan - Assessment (1) SBO (small bowel obstruction) Code(s): K56.609 - Unspecified intestinal obstruction, unspecified as to partial versus complete obstruction Status: Acute Plan: clinically much improved, good bowel sounds, nontender, will progress diet (2) Crohns disease Code(s): K50.90 - Crohn's disease, unspecified, without complications Status: Chronic Plan: PEr report her Chrons disease did not respond to the Humira and she was unable to pay for other medication alternatives, She has had the diarrhea but no flare ups with abdominal pain over the last couple of months. She has not seen her GI doctor in almost a year. Consult pending (3) Fibromyalgia Code(s): M79.7 - Fibromyalgia Status: Chronic Plan: continue her home medications (2) Crohns disease Qualifiers: Digestive disease complication type: with intestinal obstruction
[2018-06-29] MEDS: clonazePAM 1 MG Tablet PO SCH (21:18)
[2018-06-29] MEDS: Enoxaparin Inj 30 MG/0.3 ML Syringe SQ SCH (21:18)
[2018-06-29] MEDS: MethylPREDNISolone Sod Succinate Inj 40 MG/ML Vial IV.PUSH SCH (21:19)
--- NOTE | 2018-06-29 22:01 | MB ---
cc: Zari Rico MD DATE: 06/29/2018 TYPE OF CONSULTATION: GI consult. REASON FOR CONSULTATION: Management of acute Crohn's exacerbation. HISTORY OF PRESENT ILLNESS: This is a 58-year-old female patient known to our service from previous outpatient visits. She is known to have Crohn's disease for several years, initially treated with Imuran and Remicade and she felt a slight improvement. Later on, switched to Humira, but the patient did not complete for a long period of time and stopped her medication 4 months ago because she is not feeling better while taking the medication. The patient was planned to be on Entyvio, but the patient could not afford the copayment and never took the medication and currently is not taking any medicine for her Crohn's disease. The patient presented to the emergency room here at [facility] complaining of abdominal pain that got worse over the last 24 hours, associated with significant nausea, but no vomiting. The patient has chronic diarrhea, not improved for a long period of time. The patient had a CT scan done to her in the emergency room that showed abnormal fecalization of the small bowel loops that appeared to be dilated and organized in the mid lower abdomen, which is suggestive of possible distal ileal loop transitional obstruction, likely partial versus localized ileus. The patient was admitted to the hospital for further evaluation of her active disease. REVIEW OF SYSTEMS: All 14-point review of systems is negative other than the ones mentioned in the history of present illness. PAST MEDICAL HISTORY: Crohn's disease, carpal tunnel syndrome. PAST SURGICAL HISTORY: History of hysterectomy, cholecystectomy, cardiac catheterization, joint replacement, tubal ligation. FAMILY HISTORY: Positive for Crohn's disease in her mother. PSYCHOSOCIAL HISTORY: Denies smoking, alcohol or IV drug abuse. MEDICATIONS AT THE CURRENT TIME: 1. Acetaminophen. 2. Clonazepam. 3. Enoxaparin. 4. Toradol. 5. Morphine sulfate. 6. Zofran. 7. Pantoprazole. ALLERGIES: HYDROMORPHONE, CODEINE, METOCLOPRAMIDE AND MORPHINE. PHYSICAL EXAMINATION: GENERAL: The patient is found to be comfortable at the current time, not in distress or in pain. Hemodynamically stable. HEAD AND NECK: Showed normocephalic, atraumatic. Pupils equal, round, and reactive to light. Supple neck. No lymphadenopathy. No thyromegaly. CHEST: Clear to auscultation bilaterally. No crackles or wheezes. CARDIOVASCULAR: Regular rate and rhythm. No murmurs. ABDOMEN: Soft, nontender. No hepatosplenomegaly. No palpable masses. EXTREMITIES: Normal pulses. No edema. NEUROLOGIC: Nonfocal. Cranial nerves 2-12 grossly intact. SKIN: No rashes. LABORATORY DATA: Showed white count of 12.5, hemoglobin 15.1, platelets 332. Chemistry within normal limits. Liver enzymes within normal limits. Lipase 93, albumin 3.1. CT scan as reported in history of present illness was suggestive of possible ileus or partial small-bowel obstruction at the distal ileum. ASSESSMENT AND PLAN: 1. A 58-year-old female patient known to us who has presented with nausea, severe abdominal pain and a CT scan finding suggestive of possible partial small-bowel obstruction at the level of the terminal ileum, suggestive of an active disease at that place. 2. Known history of Crohn's disease that discontinued her medication by herself 4 months ago. 3. No response to previous response to Imuran, Humira or Remicade and cannot afford to be placed on Entyvio. 4. Leukocytosis. RECOMMENDATION: Based on the above findings, the patient is experiencing more likely to be an acute exacerbation of Crohn's disease. Would recommend continuing her on a clear liquid diet for the time being, supportive care and symptomatic treatment. I will start her on methylprednisolone or hydrocortisone IV for 24-48 hours, until she becomes less symptomatic, then we will switch her to budesonide 9 mg orally. The patient will need close followup and to be maintained on certain medication. Otherwise, she will have more symptoms like complete obstruction or fistulization. Will followup with you for further recommendations. MD NEVAEH Rivera/villa , 08:31 PM , 08:41 PM
[2018-06-30] MEDS: Sod Chloride 0.9% Inj 1,000 ML IV.CONT SCH ×2 (03:39→13:14)
[2018-06-30] MEDS: MethylPREDNISolone Sod Succinate Inj 40 MG/ML Vial IV.PUSH SCH ×2 (08:12→21:47)
[2018-06-30] MEDS: Ketorolac Inj 30 MG/ML (IVP) Vial IV.PUSH PRN (09:43)
--- NOTE | 2018-06-30 16:22 | P.PN ---
Subjective Interval history: had bm yesterday, still with some cramping but improved Physical Exam Vital signs: Vital Signs 06/30/18 00:00 06/30/18 08:00 06/30/18 12:00 Temperature 98.0 F 97.3 F L 97.5 F L Pulse Rate 68 77 82 Respiratory Rate 16 16 16 Blood Pressure 128/78 123/78 151/79 H Pulse Oximetry 98 99 98 Intake & Output 06/29/18 06/30/18 06/30/18 18:59 06:59 18:59 Intake Total 2420 / 2420 1000 / 1000 920 / 920 Balance 2420 / 2420 1000 / 1000 920 / 920 Weight 86 kg Intake: IV 1700 / 1700 1000 / 1000 920 / 920 NS Inj 1,000 ML @ 100 mls/hr IV 1700 / 1700 1000 / 1000 920 / 920 .CONT .Q10H SARAH Rx#:[id number] Oral 720 / 720 Other: # Voids 4 3 Date of Last Bowel Movement 06/29/18 06/29/18 # Bowel Movements 1 - Constitutional no acute distress - Routine HEENT Exam Head: Present: normocephalic Eye: Present: EOMI - Routine Respiratory Exam Present: CTA bilaterally - Routine Cardiovascular Exam Present: RRR - Routine Abdominal Exam Present: soft, normoactive bowel sounds - Routine Skin Exam Present: intact - Routine Neurological Exam Present: alert, oriented X3 - Routine Psychiatric Exam Present: normal affect, normal thought process Results - Labs CBC & Chem 7: 06/28/18 16:20 06/29/18 06:55 Laboratory Results - last 24 hr 06/30/18 07:50 C-Reactive Protein 1.28 H Assessment and Plan - Assessment (1) SBO (small bowel obstruction) Code(s): K56.609 - Unspecified intestinal obstruction, unspecified as to partial versus complete obstruction Status: Acute Plan: seen by GI felt her symptoms were more related to chrons exacerbation (2) Crohns disease Code(s): K50.90 - Crohn's disease, unspecified, without complications Status: Chronic Plan: GI has seen her and started her on methylprednisolone for now. continue supportive care. (3) Fibromyalgia Code(s): M79.7 - Fibromyalgia Status: Chronic Plan: continue her home medications (2) Crohns disease Qualifiers: Digestive disease complication type: with intestinal obstruction
[2018-06-30] MEDS: Enoxaparin Inj 30 MG/0.3 ML Syringe SQ SCH (21:46)
[2018-06-30] MEDS: clonazePAM 1 MG Tablet PO SCH (21:47)
[2018-07-01 07:36] LABS: Chloride 107 meq/L (98-107); Potassium 3.8 meq/L (3.5-5.1); Sodium 141 meq/L (136-145)
[2018-07-01 07:37] LABS: Baso # (Auto) 0.1 th/mm3 (0.0-0.2); Baso % (Auto) 0.6 % (0.0-2.0); Hematocrit 38.9 % (35.0-46.0); Hemoglobin 12.9 gm/dL (11.6-15.3); Lymph % (Auto) 6.1 % (9.0-44.0); Mean Corpuscular HGB Conc 33.2 % (32.0-36.0); Mean Corpuscular Volume 90.5 fL (80.0-100.0); Mean Platelet Volume 9.7 fL (7.0-11.0); Mono # (Auto) 0.2 th/mm3 (0.0-0.9); Mono % (Auto) 1.4 % (0.0-8.0); Neut # (Auto) 14.8 th/mm3 (1.8-7.7); Neut % (Auto) 91.9 % (16.0-70.0); Platelet Count 294 th/mm3 (150-450); Red Cell Distribution Width 12.4 % (11.6-17.2); White Blood Count 16.1 th/mm3 (4.0-11.0)
[2018-07-01 07:44] LABS: Albumin 2.7 g/dL (3.4-5.0); Anion Gap 9 meq/L (5-15); Calcium 8.4 mg/dL (8.5-10.1); Carbon Dioxide 25.3 meq/L (21.0-32.0); Glucose,Random 118 mg/dL (74-106)
[2018-07-01 07:45] LABS: Blood Urea Nitrogen 8 mg/dL (7-18)
[2018-07-01 07:46] LABS: Alanine Aminotransferase 24 U/L (10-53); Aspartate Aminotransferase 21 U/L (15-37)
[2018-07-01 07:47] LABS: Total Protein 6.7 g/dL (6.4-8.2)
[2018-07-01 07:48] LABS: Glomerular Filtration Rate Greater Than 89 mL/min (>89)
[2018-07-01 07:49] LABS: Alkaline Phosphatase 87 U/L (45-117)
[2018-07-01] MEDS: MethylPREDNISolone Sod Succinate Inj 40 MG/ML Vial IV.PUSH SCH ×2 (09:31→21:28)
--- NOTE | 2018-07-01 11:05 | P.PN ---
Subjective Interval history: tolerating clear liquid, one episode of cramping prior to bm otherwise ok, Soft formed stool, ambulating in capps , feels much better Physical Exam Vital signs: Vital Signs 06/30/18 12:00 06/30/18 16:00 06/30/18 20:00 Temperature 97.5 F L 98.0 F 98.0 F Pulse Rate 82 78 80 Respiratory Rate 16 16 18 Blood Pressure 151/79 H 165/75 H 142/67 H Pulse Oximetry 98 97 98 07/01/18 00:00 07/01/18 08:00 Temperature 98.8 F 97.5 F L Pulse Rate 60 66 Respiratory Rate 16 18 Blood Pressure 132/60 138/82 Pulse Oximetry 99 98 Intake & Output 06/30/18 07/01/18 07/01/18 18:59 06:59 18:59 Intake Total 2400 / 2400 240 / 240 Balance 2400 / 2400 240 / 240 Intake: IV 1320 / 1320 NS Inj 1,000 ML @ 100 mls/hr IV 1320 / 1320 .CONT .Q10H SARAH Rx#:[id number] Oral 1080 / 1080 240 / 240 Other: # Voids 4 3 Date of Last Bowel Movement 06/29/18 # Bowel Movements 0 - Constitutional no acute distress - Routine HEENT Exam Head: Present: normocephalic - Routine Respiratory Exam Present: CTA bilaterally - Routine Cardiovascular Exam Present: RRR - Routine Abdominal Exam Present: soft, normoactive bowel sounds - Routine Skin Exam Present: intact - Routine Neurological Exam Present: alert, oriented X3 - Routine Psychiatric Exam Present: normal affect, normal thought process Results - Labs CBC & Chem 7: 07/01/18 06:08 07/01/18 06:08 Laboratory Results - last 24 hr 07/01/18 07/01/18 06:08 06:08 CBC w Diff Auto diff final WBC 16.1 H RBC 4.30 Hgb 12.9 Hct 38.9 MCV 90.5 MCH 30.0 MCHC 33.2 RDW 12.4 Plt Count 294 MPV 9.7 Neut % (Auto) 91.9 H Lymph % (Auto) 6.1 L [place] % (Auto) 1.4 Eos % (Auto) 0.0 Baso % (Auto) 0.6 Neut # (Auto) 14.8 H Lymph # (Auto) 1.0 [place] # (Auto) 0.2 Eos # (Auto) 0.0 Baso # (Auto) 0.1 WBC Differential . Differential Comment . Sodium 141 Potassium 3.8 Chloride 107 Carbon Dioxide 25.3 Anion Gap 9 BUN 8 Creatinine 0.61 Estimated GFR Greater than 89 Random Glucose 118 H Calcium 8.4 L Total Bilirubin 0.2 AST 21 ALT 24 Alkaline Phosphatase 87 Total Protein 6.7 D Albumin 2.7 L Assessment and Plan - Assessment (1) SBO (small bowel obstruction) Code(s): K56.609 - Unspecified intestinal obstruction, unspecified as to partial versus complete obstruction Status: Acute Plan: seen by GI felt her symptoms were more related to chrons exacerbation (2) Crohns disease Code(s): K50.90 - Crohn's disease, unspecified, without complications Status: Chronic Plan: GI has seen her and started her on methylprednisolone clinically improving continue supportive care progress diet. (3) Fibromyalgia Code(s): M79.7 - Fibromyalgia Status: Chronic Plan: continue her home medications - Plan Discussed Condition With: patient (2) Crohns disease Qualifiers: Digestive disease complication type: with intestinal obstruction
[2018-07-01] MEDS: Ketorolac Inj 30 MG/ML (IVP) Vial IV.PUSH PRN ×2 (14:43→21:30)
--- NOTE | 2018-07-01 17:06 | P.PNGI ---
Subjective Interval history: Feeling better.Tolerated full liquids .Abdominal pain better , some crampy abdominal pain, had bowel movements,passing flatus Physical Exam Vital signs: Vital Signs 06/30/18 20:00 07/01/18 00:00 07/01/18 08:00 Temperature 98.0 F 98.8 F 97.5 F L Pulse Rate 80 60 66 Respiratory Rate 18 16 18 Blood Pressure 142/67 H 132/60 138/82 Pulse Oximetry 98 99 98 07/01/18 12:00 07/01/18 15:57 Temperature 98.0 F 97.9 F Pulse Rate 18 L 65 Respiratory Rate 18 18 Blood Pressure 178/90 H 151/84 H Pulse Oximetry 98 99 Intake & Output 06/30/18 07/01/18 07/01/18 18:59 06:59 18:59 Intake Total 2400 / 2400 240 / 240 Balance 2400 / 2400 240 / 240 Intake: IV 1320 / 1320 NS Inj 1,000 ML @ 100 mls/hr IV 1320 / 1320 .CONT .Q10H SARAH Rx#:[id number] Oral 1080 / 1080 240 / 240 Other: # Voids 4 3 Date of Last Bowel Movement 06/29/18 # Bowel Movements 0 - Constitutional no acute distress - Routine HEENT Exam Head: Present: normocephalic ENT: Present: mucous membranes moist - Routine Respiratory Exam Present: CTA bilaterally - Routine Cardiovascular Exam Present: RRR - Routine Abdominal Exam Present: soft - Routine Extremities Exam Present: pulses intact - Routine Skin Exam Present: intact - Routine Neurological Exam Present: alert, oriented X3 - Detailed Neurological Exam: Coma Scale Verbal Response: Oriented - Routine Psychiatric Exam Present: normal affect Results - Labs CBC & Chem 7: 07/01/18 06:08 07/01/18 06:08 Laboratory Results - last 24 hr 07/01/18 07/01/18 06:08 06:08 CBC w Diff Auto diff final WBC 16.1 H RBC 4.30 Hgb 12.9 Hct 38.9 MCV 90.5 MCH 30.0 MCHC 33.2 RDW 12.4 Plt Count 294 MPV 9.7 Neut % (Auto) 91.9 H Lymph % (Auto) 6.1 L [place] % (Auto) 1.4 Eos % (Auto) 0.0 Baso % (Auto) 0.6 Neut # (Auto) 14.8 H Lymph # (Auto) 1.0 [place] # (Auto) 0.2 Eos # (Auto) 0.0 Baso # (Auto) 0.1 WBC Differential . Differential Comment . Sodium 141 Potassium 3.8 Chloride 107 Carbon Dioxide 25.3 Anion Gap 9 BUN 8 Creatinine 0.61 Estimated GFR Greater than 89 Random Glucose 118 H Calcium 8.4 L Total Bilirubin 0.2 AST 21 ALT 24 Alkaline Phosphatase 87 Total Protein 6.7 D Albumin 2.7 L Assessment and Plan - Plan Acute exacerbation of Crohn's disease -secondary to noncompliance Noncompliance to medical treatment due to copayment issues -does not qualify for patient assistance programs as per her CT suggestive of [partial sbo most likely caused by acute exacerbation of Crohn' s disease -clinically improving Recommendations Advance to soft diet c reactive protein sed rate continue Prednisone we will give her an rx for Entocort once discharge we will discuss with [facility] chief pharmacist and case coordinator to possible arrange for Remicade/Entyvio infusion or alternative biologics at an affordable morales She responded well to Remicade, had side effects with Humira abdominal x ray in am if stable can dc home in am with close fu in gi clinic
[2018-07-01] MEDS ORDERED: Pantoprazole Inj 40 MG Vial IV.PUSH SCH (21:00)
[2018-07-01] MEDS: clonazePAM 1 MG Tablet PO SCH (21:29)
[2018-07-02 07:46] LABS: Chloride 104 meq/L (98-107); Potassium 3.6 meq/L (3.5-5.1); Sodium 139 meq/L (136-145)
[2018-07-02 07:47] LABS: Baso # (Auto) 0.1 th/mm3 (0.0-0.2); Baso % (Auto) 0.4 % (0.0-2.0); Eos % (Auto) 0.1 % (0.0-4.0); Hemoglobin 13.9 gm/dL (11.6-15.3); Lymph # (Auto) 1.5 th/mm3 (1.0-4.8); Lymph % (Auto) 10.7 % (9.0-44.0); Mean Corpuscular HGB Conc 33.9 % (32.0-36.0); Mean Corpuscular Hemoglobin 30.8 pg (27.0-34.0); Mean Corpuscular Volume 90.9 fL (80.0-100.0); Mean Platelet Volume 9.4 fL (7.0-11.0); Mono # (Auto) 0.4 th/mm3 (0.0-0.9); Mono % (Auto) 2.9 % (0.0-8.0); Neut # (Auto) 12.5 th/mm3 (1.8-7.7); Neut % (Auto) 85.9 % (16.0-70.0); Platelet Count 334 th/mm3 (150-450); Red Blood Count 4.51 mil/mm3 (4.00-5.30); Red Cell Distribution Width 12.3 % (11.6-17.2); White Blood Count 14.5 th/mm3 (4.0-11.0)
[2018-07-02 07:54] LABS: Albumin 3.1 g/dL (3.4-5.0); Calcium 8.7 mg/dL (8.5-10.1); Glucose,Random 130 mg/dL (74-106)
[2018-07-02 07:56] LABS: Anion Gap 8 meq/L (5-15); Blood Urea Nitrogen 9 mg/dL (7-18); Carbon Dioxide 26.7 meq/L (21.0-32.0)
[2018-07-02 08:08] LABS: Alanine Aminotransferase 49 U/L (10-53); Alkaline Phosphatase 104 U/L (45-117); Aspartate Aminotransferase 34 U/L (15-37); Glomerular Filtration Rate 83 mL/min (>89); Total Protein 7.3 g/dL (6.4-8.2)
[2018-07-02] MEDS: MethylPREDNISolone Sod Succinate Inj 40 MG/ML Vial IV.PUSH SCH (08:36)
--- NOTE | 2018-07-02 10:20 | XR ---
EXAM DATE: 07/02/2018 10:15 AM EST AGE/SEX: 58 years / Female INDICATIONS: Obstruction. CLINICAL DATA: This is the patient's subsequent encounter. Patient reports that signs and symptoms h ave been present for 4 - 6 days and indicates a pain score of 1/10. MEDICAL/SURGICAL HISTORY: Crohn's disease. Cardiovascular disease. Cholecystectomy. Tubal lig ation. COMPARISON: [facility], CT ABDOMEN & PELVIS W CONTRAST, 06/28/2018. [facility], CT ABDOMEN & PELVIS W CONTRAST , 11/07/2017. . FINDINGS: Left total hip arthroplasty is noted with acetabular protrusion, a screw extending beyond the acetabu lum. This corresponds to findings present on prior examinations. The bowel gas pattern is nonobstruct chapin. No dilated loops of bowel are seen. There are degenerative changes of the spine. CONCLUSION: Nonobstructive bowel gas pattern. Electronically signed by: Bjiu Whittington MD Board Certified Radiologist 07/02/2018 10:18 AM EST
--- NOTE | 2018-07-02 11:07 | P.PN ---
Subjective Interval history: feeling better , tolerating food, seen by Dr Coates yesterday and will be discharge on Entocort Physical Exam Vital signs: Vital Signs 07/01/18 12:00 07/01/18 15:57 07/01/18 20:00 Temperature 98.0 F 97.9 F 97.7 F Pulse Rate 18 L 65 73 Respiratory Rate 18 18 16 Blood Pressure 178/90 H 151/84 H 179/87 H Pulse Oximetry 98 99 96 07/02/18 00:00 07/02/18 01:13 07/02/18 02:25 Temperature 97.0 F L Pulse Rate 52 L Respiratory Rate 16 18 18 Blood Pressure 181/79 H Pulse Oximetry 94 L 07/02/18 04:17 07/02/18 08:00 Temperature 96.3 F L 97.4 F L Pulse Rate 54 L 64 Respiratory Rate 18 15 Blood Pressure 168/87 H 148/72 H Pulse Oximetry 96 96 Intake & Output 07/01/18 07/02/18 07/02/18 18:59 06:59 18:59 Intake Total 200 / 200 Balance 200 / 200 Weight 88.8 kg Intake: Oral Supplement 200 / 200 Other: # Voids 4 2 Date of Last Bowel Movement 07/01/18 07/01/18 07/01/18 # Bowel Movements 1 - Constitutional no acute distress - Routine HEENT Exam Head: Present: normocephalic Eye: Present: EOMI ENT: Present: mucous membranes moist - Routine Respiratory Exam Present: CTA bilaterally - Routine Cardiovascular Exam Present: RRR - Routine Abdominal Exam Present: soft, normoactive bowel sounds - Routine Skin Exam Present: intact - Routine Neurological Exam Present: alert, oriented X3 - Routine Psychiatric Exam Present: normal affect, normal thought process, good insight Results - Labs CBC & Chem 7: 07/02/18 06:25 07/02/18 06:25 Laboratory Results - last 24 hr 07/01/18 07/01/18 07/02/18 18:24 18:24 06:25 CBC w Diff Auto diff final WBC 14.5 H RBC 4.51 Hgb 13.9 Hct 41.0 MCV 90.9 MCH 30.8 MCHC 33.9 RDW 12.3 Plt Count 334 MPV 9.4 Neut % (Auto) 85.9 H Lymph % (Auto) 10.7 [place] % (Auto) 2.9 Eos % (Auto) 0.1 Baso % (Auto) 0.4 Neut # (Auto) 12.5 H Lymph # (Auto) 1.5 [place] # (Auto) 0.4 Eos # (Auto) 0.0 Baso # (Auto) 0.1 WBC Differential . Differential Comment . ESR 20 Sodium Potassium Chloride Carbon Dioxide Anion Gap BUN Creatinine Estimated GFR Random Glucose Calcium Total Bilirubin AST ALT Alkaline Phosphatase C-Reactive Protein 0.48 H Total Protein Albumin 07/02/18 06:25 CBC w Diff WBC RBC Hgb Hct MCV MCH MCHC RDW Plt Count MPV Neut % (Auto) Lymph % (Auto) [place] % (Auto) Eos % (Auto) Baso % (Auto) Neut # (Auto) Lymph # (Auto) [place] # (Auto) Eos # (Auto) Baso # (Auto) WBC Differential Differential Comment ESR Sodium 139 Potassium 3.6 Chloride 104 Carbon Dioxide 26.7 Anion Gap 8 BUN 9 Creatinine 0.72 Estimated GFR 83 L Random Glucose 130 H Calcium 8.7 Total Bilirubin 0.4 AST 34 ALT 49 Alkaline Phosphatase 104 C-Reactive Protein Total Protein 7.3 D Albumin 3.1 L - Imaging Impressions Abdomen X-Ray 07/02/18 00:00 CONCLUSION: Nonobstructive bowel gas pattern. - Procedures none Assessment and Plan - Assessment (1) SBO (small bowel obstruction) Code(s): K56.609 - Unspecified intestinal obstruction, unspecified as to partial versus complete obstruction Status: Resolved Plan: seen by GI felt her symptoms were more related to crohns exacerbation (2) Crohns disease Code(s): K50.90 - Crohn's disease, unspecified, without complications Status: Chronic Plan: Clinically improved, seen by GI, she has failed multiple medications, will discharge on Entocort and Gi will work on trying to get her remicade (3) Fibromyalgia Code(s): M79.7 - Fibromyalgia Status: Chronic Plan: continue her home medications - Plan Discharge home today, Entocort has been called in to her pharmacy by Gi , Close follow up with GI. Hopefully will be able to get [facility] to help with remicade at rate she can afford. (2) Crohns disease Qualifiers: Digestive disease complication type: with intestinal obstruction
[2018-07-02] MEDS ORDERED: Enoxaparin Inj 40 MG/0.4 ML Syringe SQ SCH (16:00)
== END 2018-07-02 12:18 | disposition home or self-care (01) | DRG 387 ==
LOC: PHEDA 14:52 → PHEFT 14:52 → PHEDA 19:48 → PH3 19:50
PROVIDERS: ADMIT Legal Medicine; ATTEND Legal Medicine
CPT/HCPCS: 74019; 74177; 76937; 80048; 80053; 81001; 83690; 83735; 83993; 85025; 85610; 85651; 85652; 85730; 86140; 90761; 90774; 90775; 96361; 96374; 96375; 99285; C8952; C9113; J1650; J1885; J2270; J2405; J2550; J2920; J7030; Q9967